=== PATIENT | female | born 1960 | race Caucasian/White ===

== ENCOUNTER 2024-01-14 12:25 | Emergency (ER) | payer MEDICARE, OTHER ==
[2024-01-14 12:30] VITALS: PULSE 87
[2024-01-14 13:08] LABS: BASOPHILS ABSOLUTE AUTO 0.03 K/uL (0.00-0.20); BASOPHILS PERCENT AUTO 0.4 % (0.0-2.0); EOSINOPHILS ABSOLUTE AUTO 0.04 K/uL (0.00-0.50); EOSINOPHILS PERCENT AUTO 0.6 % (0.0-5.0); HEMATOCRIT 48.6 % (34.0-46.0); HEMOGLOBIN 16.6 g/dL (11.7-15.5); LYMPHOCYTES ABSOLUTE AUTO 1.66 K/uL (0.50-3.50); LYMPHOCYTES PERCENT AUTO 23.3 % (10.0-50.0); MEAN CORPUSCULAR HEMOGLOBIN 33.1 pg (28.2-33.3); MEAN CORPUSCULAR HGB CONC 34.2 g/dL (31.7-36.0); MEAN CORPUSCULAR VOLUME 96.8 fL (84.0-98.0); MONOCYTES ABSOLUTE AUTO 0.46 K/uL (0.00-1.00); MONOCYTES PERCENT AUTO 6.5 % (2.0-14.0); NEUTROPHILS ABSOLUTE AUTO 4.92 K/uL (1.40-7.00); NEUTROPHILS PERCENT AUTO 69.2 % (45.0-80.0); PLATELET COUNT,PLT 295 K/uL (150-350); RED BLOOD CELL COUNT 5.02 M/uL (3.77-5.09); RED CELL DISTRIBUTION WIDTH 13.2 % (11.2-14.1); WHITE BLOOD CELL COUNT,WBC 7.1 K/uL (4.0-10.2)
[2024-01-14 13:24] LABS: ALBUMIN 4.1 g/dL (3.4-5.0); BILIRUBIN TOTAL 0.9 mg/dL (0.2-1.0); CALCIUM 9.2 mg/dL (8.5-10.1); CREATININE 0.87 mg/dL (0.51-1.17); EST CRCL DRUG DOSING (CG) 61.1 mL/min; POTASSIUM,K 3.3 mmol/L (3.5-5.1); PROTEIN TOTAL,TP 7.1 g/dL (6.4-8.2)
[2024-01-14 13:26] LABS: ANION GAP 13.3 meq/L (7-15)
[2024-01-14] MEDS: ALPRAZolam 1 MG Tab PO ONE (14:02)
[2024-01-14 14:36] VITALS: BP 156/82
== END 2024-01-14 14:15 | disposition home or self-care (01) ==
LOC: LL.ED 12:25
DX: I10 Essential (primary) hypertension (principal); F41.9 Anxiety disorder, unspecified; Z87.891 Personal history of nicotine dependence; Z79.899 Other long term (current) drug therapy; Z88.5 Allergy status to narcotic agent; Z88.8 Allergy status to other drugs, medicaments and biological substances; Z91.030 Bee allergy status
CPT/HCPCS: 36415; 80053; 84484; 85025; 93005; 93010; 99283; 99284; A9270-GY